=== PATIENT | female | born 1960 | race Caucasian/White ===

== ENCOUNTER 2016-04-17 17:49 | Emergency (ER) | payer BC ==
[2016-04-17 18:23] VITALS: BP 125/63
[2016-04-17] MEDS ORDERED: Ibuprofen TAB* 600 MG PO ONE (18:28)
--- NOTE | 2016-04-17 18:38 | UC ---
Hip/Pelvis Pain - HPI Summary HPI Summary: left hip pain. She was playing with her granddaughter, was running, stepped onto left foot and twisted at hip. Sudden moderate pain on lateral hip which has worsened as day went on. NOw can barely bear any weight on it. Feels better to hold it still with ice on it. No history of hip pain or arthritis. No prior fractures. Took one ibuprofen at 3pm, no help with pain. - History Of Current Complaint Chief Complaint: UCGeneralIllness Stated Complaint: LEFT HIP PAIN Time Seen by Provider: 04/17/16 18:17 Hx Obtained From: Patient Hx Last Menstrual Period: ONE YEAR AGO Onset/Duration: Sudden Onset, Lasting Hours - 4 Timing: Constant Severity Initially: Moderate Severity Currently: Severe Location: Discrete At: - left lateral hip over trochanteric bursa Character Of Pain: Sharp, Aching, Throbbing Aggravating Factor(s): Movement - any movement at hip hurts, Weight Bearing, Other - touching the area Alleviating Factor(s): Rest, Cold Associated Signs And Symptoms: Negative: Swelling, Redness, Bruising, Fever, Weakness, Dizziness, Syncope, Abdominal Pain, Knee Pain - Risk Factors Septic Arthritis Risk Factor: Negative - Allergies/Home Medications Allergies/Adverse Reactions: Allergies Allergy/AdvReac Type Severity Reaction Status Date / Time Paroxetine [From Paxil] Allergy Severe elavated Verified 04/17/16 18:11 blood sugar and rash Penicillins [PCN] Allergy Severe Anaphylatic Verified 04/17/16 18:11 Shock Aripiprazole [From Abilify] Allergy Intermediate rash and Verified 04/17/16 18: 11 twitching Asenapine [From Saphris] Allergy Anxiety Verified 04/17/16 18:11 Lurasidone [From Latuda] Allergy Headache Verified 04/17/16 18:11 Risperidone [From Risperdal] Allergy Anxiety Verified 04/17/16 18:11 Serotonin Allergy Hallucinati Verified 04/17/16 18:11 ons Sertraline [From Zoloft] Allergy Anxiety Verified 04/17/16 18:11 Ziprasidone [From Geodon] Allergy Anxiety Verified 04/17/16 18:11 Home Medications: Home Medications Ibuprofen TAB* [Advil TAB*] 1 tab PRN 04/17/16 [History] PMH/Surg Hx/FS Hx/Imm Hx Endocrine History Of: Denies: Diabetes Cardiovascular History Of: Denies: Hypertension, Pacemaker/ICD Neurological History Of: Denies: TIA, CVA, Dementia, Seizures, Migraine Psychological History Of: Reports: Anxiety, Depression Cancer History Of: Denies: Breast Cancer - Surgical History Surgical History: None - Family History Known Family History: Positive: None Negative: Cardiac Disease, Respiratory Disease - Social History Occupation: Employed Full-time Lives: With Family Alcohol Use: None Substance Use Type: None Smoking Status (MU): Never Smoked Tobacco - Immunization History Most Recent Influenza Vaccination: Fall 2015 Most Recent Tetanus Shot: unknown Most Recent Pneumonia Vaccination: unknown Review of Systems Constitutional: Negative Skin: Negative Eyes: Negative ENT: Negative Respiratory: Negative Cardiovascular: Negative Gastrointestinal: Negative Genitourinary: Negative Motor: Decreased ROM Neurovascular: Negative Musculoskeletal: Arthralgia, Decreased ROM, Myalgia Neurological: Negative Psychological: Negative All Other Systems Reviewed And Are Negative: Yes Physical Exam Triage Information Reviewed: Yes Appearance: Well-Appearing, No Pain Distress, Well-Nourished Vital Signs: Initial Vital Signs Temp 99.9 F 04/17/16 18:13 Pulse 71 04/17/16 18:13 Resp 18 04/17/16 18:13 BP 125/63 04/17/16 18:13 Pulse Ox 97 04/17/16 18:13 Vital Signs Reviewed: Yes Eye Exam: Normal Neck exam: Normal Respiratory Exam: Normal Cardiovascular Exam: Normal Musculoskeletal Exam: Other - tenderness over left trochanteric bursa. No redness or swelling. Pain with even slight movement at left hip. Can hardly bear weight due to pain. Neurological Exam: Normal Psychological Exam: Normal Skin Exam: Normal Diagnostics - Laboratory Diagnostic Studies Completed/Ordered: hip xray: mild DJD Hip Injury Course/Dx - Differential Dx/Diagnosis Differential Diagnosis/HQI/PQRI: Bursitis, Contusion, Dislocation, Strain, Tenosynovitis Provider Diagnoses: trochanteric bursitis Discharge - Discharge Plan Condition: Stable Disposition: HOME Prescriptions: Meloxicam [Mobic] 15 mg PO DAILY PRN #20 tab PRN Reason: hip pain Patient Education Materials: Hip Bursitis (ED) Forms: *Work Release Referrals: China Miranda [Primary Care Provider] - Edwar Jo MD [Medical Doctor] -
--- NOTE | 2016-04-17 19:09 | RAD ---
Indication: Left hip pain laterally. 2 views of left hip and an AP view the pelvis demonstrates some mild degenerative changes of left hip. No fracture is noted. Sacroiliac joints are intact. IMPRESSION: Mild degenerative changes of the left hip are noted.
== END 2016-04-17 19:39 | disposition home or self-care (01) ==
LOC: UCCORT 17:49
DX: M70.62 Trochanteric bursitis, left hip (principal); M16.12 Unilateral primary osteoarthritis, left hip; Y93.02 Activity, running; Z88.0 Allergy status to penicillin; Z88.8 Allergy status to other drugs, medicaments and biological substances
CPT/HCPCS: 99212; A9270-GY; G0463

== ENCOUNTER 2016-07-07 08:29 | Emergency (ER) | payer BC ==
[2016-07-07 08:50] VITALS: BP 143/79
--- NOTE | 2016-07-07 09:01 | UC ---
General HPI - HPI Summary HPI Summary: The patient comes in today for: 1. Body bruising: Onset: Yesterday morning when she woke up. Palliative/provocative: Nothing Quality: No pain Region: Right upper chest Severity: 0/10 Time: Constant. Associated symptoms: Event: The patient found the bruising and called [facility] where she had an MRI 2 days ago. She was told to come here to be evaluated. When the nurse did her triage, she stated that she does not feel safe at home all the time. But she has a way to keep herself safe. No known metal in her body. She does not have any bleeding in other areas (gums, with bowel movements, subconjunctival, vaginal--etc. * - History of Current Complaint Chief Complaint: Michelle Stated Complaint: BODY BRUISING Time Seen by Provider: 07/07/16 08:52 Hx Obtained From: Patient - Allergy/Home Medications Allergies/Adverse Reactions: Allergies Allergy/AdvReac Type Severity Reaction Status Date / Time Paroxetine [From Paxil] Allergy Severe elavated Verified 07/07/16 08:42 blood sugar and rash Penicillins [PCN] Allergy Severe Anaphylatic Verified 07/07/16 08:42 Shock Aripiprazole [From Abilify] Allergy Intermediate rash and Verified 07/07/16 08: 42 twitching Asenapine [From Saphris] Allergy Anxiety Verified 07/07/16 08:42 Haloperidol [From Haldol] Allergy See Comment Verified 07/07/16 08:42 Lurasidone [From Latuda] Allergy Headache Verified 07/07/16 08:42 Risperidone [From Risperdal] Allergy Anxiety Verified 07/07/16 08:42 Serotonin Allergy Hallucinati Verified 07/07/16 08:42 ons Sertraline [From Zoloft] Allergy Anxiety Verified 07/07/16 08:42 Ziprasidone [From Geodon] Allergy Anxiety Verified 07/07/16 08:42 Home Medications: Home Medications Oxcarbazepine [Trileptal 150 mg] 150 mg PO BID 07/07/16 [History Confirmed 07/07] PMH/Surg Hx/FS Hx/Imm Hx Previously Healthy: No - PTSD/ Endocrine History Of: Denies: Diabetes, Thyroid Disease, Hyperthyroidism, Hypothyroidism, Dyslipidemia Cardiovascular History Of: Denies: Cardiac Disorders, Hypertension, Pacemaker/ICD, Myocardial Infarction , Congestive Heart Failure, Atrial Fibrillation, Deep Vein Thrombosis, Bleeding Disorders Respiratory History Of: Denies: COPD, Asthma, Bronchitis, Pneumonia, Pulmonary Embolism GI/ History Of: Denies: Gastroesophageal Reflux, Ulcer, Gastrointestinal Bleed, Gall Bladder Disease, Kidney Stones, Diverticulitis, Renal Disease, Urosepsis Neurological History Of: Denies: TIA, CVA, Dementia, Seizures, Migraine Psychological History Of: Reports: Anxiety, Depression, Post Traumatic Stress Disorder Denies: Bipolar Disorder, Schizophrenia Cancer History Of: Denies: Lung Cancer, Colorectal Cancer, Breast Cancer, Prostate Cancer, Cervical Cancer Other History Of: Negative For: HIV, Hepatitis B, Hepatitis C, Anticoagulant Therapy - Surgical History Surgical History: None - Family History Known Family History: Positive: Unknown - The patient states that she was raised in foster care & ? fm hx. Negative: Cardiac Disease, Respiratory Disease - Social History Occupation: Employed Full-time Lives: With Family Alcohol Use: None Substance Use Type: None Smoking Status (MU): Never Smoked Tobacco - Immunization History Most Recent Influenza Vaccination: October 2014 Most Recent Tetanus Shot: unknown Most Recent Pneumonia Vaccination: unknown Review of Systems Constitutional: Negative Skin: Rash Eyes: Negative ENT: Negative Respiratory: Negative Cardiovascular: Negative Gastrointestinal: Negative Genitourinary: Negative All Other Systems Reviewed And Are Negative: Yes Physical Exam Triage Information Reviewed: Yes Appearance: Well-Appearing, No Pain Distress, Well-Nourished Vital Signs: Initial Vital Signs Temp 97.8 F 07/07/16 08:38 Pulse 78 07/07/16 08:38 Resp 16 07/07/16 08:38 BP 143/79 07/07/16 08:38 Pulse Ox 100 07/07/16 08:38 Vital Signs Reviewed: Yes Eyes: Positive: Conjunctiva Clear. Negative: Discharge ENT: Positive: Hearing grossly normal. Negative: Pharyngeal erythema, Nasal congestion, Nasal drainage, TM bulging, TM dull, TM red, Tonsillar swelling, Tonsillar exudate Dental: Negative: Gross Decay/Caries @, Dental Fracture @ Neck: Positive: Supple, Nontender, No Lymphadenopathy. Negative: Nuchal Rigidity Respiratory: Positive: Chest non-tender, Lungs clear, No respiratory distress, No accessory muscle use. Negative: Rhonchi, Wheezing Cardiovascular: Positive: RRR, No Murmur Abdomen Description: Positive: Nontender, No Organomegaly, Soft. Negative: Distended, Guarding Musculoskeletal: Positive: Strength Intact, ROM Intact, No Edema Neurological: Positive: Alert, Muscle Tone Normal Psychological: Positive: Age Appropriate Behavior, Consolable Skin: Positive: Other - The patient has Magic Marker-like circles around her upper right anterior chest and of her lower legs. The only possible ecchymosis was on her upper anterior chest. It was about 3-4 mm in diameter and non- nodular. It may have been a smudge from her Magic Marker ink.. Negative: rashes, breakdown Course/Dx - Course Course Of Treatment: Patient was told that she will be given information about how to be safe if her ability to keep herself safe is lost at home. Patient reassurance given regarding her 'body bruising." - Differential Dx - Multi-Symptom Provider Diagnoses: Contusion upper anterior right chest. Discharge - Discharge Plan Condition: Stable Disposition: HOME Patient Education Materials: Contusion in Adults (ED) Referrals: China Miranda [Primary Care Provider] - 1 Week (Please see your primary care provider in about one to two weeks to see how well you are doing. If you get worse, please be seen sooner.)
== END 2016-07-07 09:58 | disposition home or self-care (01) ==
LOC: UCCORT 08:29
DX: S20.211A Contusion of right front wall of thorax, initial encounter (principal); X58.XXXA Exposure to other specified factors, initial encounter; Y93.9 Activity, unspecified; Y92.9 Unspecified place or not applicable; Z11.4 Encounter for screening for human immunodeficiency virus [HIV]; Z88.0 Allergy status to penicillin; Z88.8 Allergy status to other drugs, medicaments and biological substances; F41.8 Other specified anxiety disorders
CPT/HCPCS: 36415; 86803; 87389; 99212; G0463; G0475

== ENCOUNTER 2016-11-23 11:12 | Emergency (ER) | payer BC ==
[2016-11-23 11:20] VITALS: BP 128/60
--- NOTE | 2016-11-23 11:25 | UC ---
Throat Pain/Nasal Sumit HPI - HPI Summary HPI Summary: Sinus pain and pressure for 1 week - History of Current Complaint Stated Complaint: SINUS PRESSURE Time Seen by Provider: 11/23/16 11:25 Hx Obtained From: Patient Hx Last Menstrual Period: ONE YEAR AGO ?: No Onset/Duration: Sudden Onset, Lasting Days - 10 Severity: Moderate Pain Intensity: 5 Cough: None Associated Signs & Symptoms: Positive: Sinus Discomfort - Allergies/Home Medications Allergies/Adverse Reactions: Allergies Allergy/AdvReac Type Severity Reaction Status Date / Time Paroxetine [From Paxil] Allergy Severe elavated Verified 11/23/16 11:20 blood sugar and rash Penicillins [PCN] Allergy Severe Anaphylatic Verified 11/23/16 11:20 Shock Aripiprazole [From Abilify] Allergy Intermediate rash and Verified 11/23/16 11: 20 twitching Asenapine [From Saphris] Allergy Anxiety Verified 11/23/16 11:20 Haloperidol [From Haldol] Allergy See Comment Verified 11/23/16 11:20 Lurasidone [From Latuda] Allergy Headache Verified 11/23/16 11:20 Risperidone [From Risperdal] Allergy Anxiety Verified 11/23/16 11:20 Serotonin Allergy Hallucinati Verified 11/23/16 11:20 ons Sertraline [From Zoloft] Allergy Anxiety Verified 11/23/16 11:20 Ziprasidone [From Geodon] Allergy Anxiety Verified 11/23/16 11:20 Home Medications: Home Medications Paliperidone TAB* [Invega TAB*] 3 mg PO DAILY 11/23/16 [History Confirmed ] hydrOXYzine HCL TAB* [Atarax 10 MG TAB*] 10 mg PO DAILY 11/23/16 [History Confirmed 11/23/16] PMH/Surg Hx/FS Hx/Imm Hx Previously Healthy: No Psychological History: Bipolar Disorder Other History Of: Negative For: HIV, Hepatitis B, Hepatitis C, Anticoagulant Therapy - Surgical History Surgical History: None - Family History Known Family History: Positive: None, Unknown - The patient states that she was raised in foster care & ? fm hx. Negative: Cardiac Disease, Respiratory Disease - Social History Occupation: Employed Part-time Lives: With Family Alcohol Use: None Substance Use Type: None Smoking Status (MU): Never Smoked Tobacco - Immunization History Most Recent Influenza Vaccination: October 2014 Most Recent Tetanus Shot: unknown Most Recent Pneumonia Vaccination: unknown Review of Systems Constitutional: Fever, Fatigue Skin: Negative Eyes: Negative ENT: Sinus Congestion, Sinus Pain/Tenderness Respiratory: Negative Cardiovascular: Negative Gastrointestinal: Negative Genitourinary: Negative Motor: Negative Neurovascular: Negative Musculoskeletal: Negative Neurological: Headache Psychological: Negative Is Patient Immunocompromised?: No All Other Systems Reviewed And Are Negative: Yes Physical Exam Triage Information Reviewed: Yes Appearance: No Pain Distress, Well-Nourished, Ill-Appearing - mild Vital Signs Reviewed: Yes Eye Exam: Normal Eyes: Positive: Conjunctiva Clear ENT Exam: Normal ENT: Positive: Normal ENT inspection, Hearing grossly normal, Nasal congestion, Nasal drainage, TMs normal. Negative: Tonsillar swelling, Tonsillar exudate, Trismus, Muffled/hoarse voice Dental Exam: Normal Neck exam: Normal Neck: Positive: Supple, Nontender Respiratory Exam: Normal Respiratory: Positive: Chest non-tender, Lungs clear, Normal breath sounds, No respiratory distress, No accessory muscle use Cardiovascular Exam: Normal Cardiovascular: Positive: RRR, No Murmur, Pulses Normal, Brisk Capillary Refill Musculoskeletal Exam: Normal Musculoskeletal: Positive: Strength Intact, ROM Intact Neurological Exam: Normal Neurological: Positive: Alert, Muscle Tone Normal Psychological Exam: Normal Skin Exam: Normal Throat Pain/Nasal Course/Dx - Course Course Of Treatment: flonase nasal spray, increase fluids, if no relief in 3-4 days may add antibiodic follow with pcp prn - Differential Dx/Diagnosis Differential Diagnosis/HQI/PQRI: Otitis Media, Pharyngitis, Sinusitis, URI Provider Diagnoses: Acute Rhinosinusitis Discharge - Discharge Plan Condition: Stable Disposition: HOME Prescriptions: DOXYcycline CAP(*) [DOXYcycline 100MG CAP(*)] 100 mg PO BID #20 cap Fluticasone NASAL SPRAY 50MCG* [Flonase NASAL SPRAY 50MCG*] 2 spray BOTH NARES DAILY #1 btl Patient Education Materials: Rhinosinusitis (ED), How to Use Nasal [place] (ED) Referrals: Medina Shin MD [Primary Care Provider] - If Needed
== END 2016-11-23 11:43 | disposition home or self-care (01) ==
LOC: UCCORT 11:12
DX: J01.90 Acute sinusitis, unspecified (principal)
CPT/HCPCS: 99212; G0463